=== PATIENT | female | born 2000 | race Hispanic/Latino ===

== ENCOUNTER 2021-07-06 03:25 | Emergency (ER) | payer OTHER ==
[~2021-07-06] VITALS: Ht 157.5 cm; Wt 52.2 kg
[2021-07-06] MEDS ORDERED: LIDOCAINE/PRILOCAINE CREAM 5GM TUBE TP ONE (03:40)
[2021-07-06] MEDS ORDERED: BENZ85AE TP (03:45)
[2021-07-06] MEDS ORDERED: ACET-2079 PO (03:45)
[2021-07-06] MEDS ORDERED: IBUP-2070 PO (03:45)
[2021-07-06] MEDS ORDERED: HYDROCODONE/ACETAMINOPHEN 5/325 MG TAB ONE (03:54)
[2021-07-06] MEDS ORDERED: BENZOCAINE/LANOLIN/ALOE VERA 60 ML AEROSOL TP ONE (03:55)
[2021-07-06] MEDS ORDERED: BENZOCAINE/LANOLIN/ALOE VERA 60 ML AEROSOL TP PRN (04:00)
[2021-07-06] MEDS ORDERED: HYDROCODONE/ACETAMINOPHEN 5/325 MG TAB PO ONE (04:00)
[2021-07-06 04:08] VITALS: BP 115/78
== END 2021-07-06 04:21 | disposition home or self-care (01) ==
LOC: EDH 03:25
DX: T25.222A Burn of second degree of left foot, initial encounter (principal); T25.221A Burn of second degree of right foot, initial encounter; X19.XXXA Contact with other heat and hot substances, initial encounter; Y93.89 Activity, other specified; Y92.89 Other specified places as the place of occurrence of the external cause; Y99.8 Other external cause status
CPT/HCPCS: 16000; 99283; J3490; 16020